=== PATIENT | male | born 1945 | race Caucasian/White ===

== ENCOUNTER 2016-08-25 14:45 | Emergency (ER) | payer MEDICARE ==
[2016-08-25] MEDS ORDERED: Lidocaine 1% (PF) 30 ML VIAL ONE (15:31)
[2016-08-25] MEDS ORDERED: Ventolin HFA Inhaler 60 PUFF INHALER ONE (15:31)
[2016-08-25] MEDS ORDERED: cefTRIAXone\\ROCEPHIN 1 GM VIAL ONE (15:31)
[2016-08-25] MEDS ORDERED: Lidocaine 1% 20 ML MDV ONE (15:32)
--- NOTE | 2016-08-25 15:38 | RAD ---
EXAM: CHEST TWO VIEWS 08/25/16 HISTORY: Cough. COMPARISON: None. FINDINGS: Atherosclerosis of the aorta. Normal cardiac silhouette. The pulmonary vessels and hilum are normal. Costophrenic angles are clear. Hyperinflation without consolidation or mass. No pneumothorax or oss eous abnormality. IMPRESSION: 1. Hyperinflation. No acute cardiopulmonary process. 2. Atherosclerosis. POS: [facility]
--- NOTE | 2016-08-25 16:10 | ERRECORD ---
[facility] EMERGENCY RECORD HPI COUGH (15:08 LHOD) CHIEF COMPLAINT: Patient presents for evaluation of cough. HISTORIAN: History provided by patient. TIME COURSE: BEFORE [place] SEEN HERE WITH TOE PAIN / GOUT. ALSO HAD COUGH FOR WHICH HE WAS TREATED WITH STEROID AND POSSIBLY KEFLEX, WITH SOME IMPROVEMENT. NOW FOR PAST WEEK AGO HAVING PROBLEMS WITH COUGH. NO CHEST PAIN. REPORTS LOW GRADE FEVER. ROS (15:15 LHOD) CONSTITUTIONAL: Historian reports fever, UNSURE BUT THINKS HAS HAD LOW GRADE FEVERS. ENT: Historian denies sore throat. CARDIOVASCULAR: Historian denies chest pain, denies edema. RESPIRATORY: Historian reports cough. GI: Historian denies abdominal pain, denies vomiting. MUSCULOSKELETAL: Negative musculoskeletal review of systems. SKIN: Historian denies rash. NEUROLOGIC: Historian denies headache. HEMO/LYMPHATIC: Historian denies easy bruising. ALLERGIC/IMMUNOLOGIC: Historian denies hives. NOTES: All systems reviewed, negative except as described above. PAST MEDICAL HISTORY MEDICAL HISTORY: Past medical history includes history of hypertension, which has been treated. CHRONIC BACK PAIN. ([facility] Aug 25, 2016 14:53 MDEB) MALE SURGICAL HISTORY: Patient has no surgical history. ([facility] Aug 25, 2016 14:53 MDEB) PSYCHIATRIC HISTORY: Notes: DENIES. ([facility] Aug 25, 2016 14:53 MDEB) SOCIAL HISTORY: Patient denies alcohol use, Patient denies drug use, Patient has no smoking history. ([facility] Aug 25, 2016 14:53 MDEB) Social History includes PT REPORTS HE DOES HAVE SMOKING HISTORY YEARS AGO, BUT NOT PRESENTLY, Patient is a former tobacco user, smoked cigarettes, Patient denies alcohol use, Patient denies drug use, Patient has no smoking history. (17:01 LHOD) NOTES: Nursing records reviewed. (15:03 LHOD) KNOWN ALLERGIES codeine sulfate (Unconfirmed): Reaction: Nausea No Known Drug Allergies Penicillins (Unconfirmed) CURRENT MEDICATIONS No recorded medications VITAL SIGNS (14:51 MDEB) VITAL SIGNS: BP: 149/74, Pulse: 87, Resp: 20, Temp: 97.8 &a-1R&a+25V*p+0X*m7419P*c202B*c15G*c2P*p-0X&a-25V&a+1R Name: Wong Lynn : 1945 M71 MedRec: [id number] AcctNum: [id number] Prepared: Sat Aug 25, 2016 17:07 by Interface Page 1 of 3 pMD [facility] EMERGENCY RECORD (Tympanic), Pain: 0, O2 sat: 93 on Room Air, Time: 08/25/2016 14:51. PHYSICAL EXAM (17:00 LHOD) CONSTITUTIONAL: Vital Signs Reviewed, Patient afebrile, Pulse normal, Blood pressure normal, Respiratory rate normal, Normal pulse oximetry, Patient appears non toxic, Patient alert and oriented to person, place and time. ENT: Pharynx exam normal. NECK: Neck exam included findings of normal range of motion, Trachea midline. RESPIRATORY CHEST: Respiratory exam included findings of, Breath sounds clear, ONE SOFT EXPIRATORY WHEEZE HEARD, THEN CLEARED. CARDIOVASCULAR: Cardiovascular exam included findings of heart rate regular rate and rhythm, Heart sounds normal. ABDOMEN MALE: Abdominal exam included findings of abdomen nontender. BACK: Back exam normal. UPPER EXTREMITY: Upper extremity exam normal. LOWER EXTREMITY: Left lower leg exam normal, Right lower leg exam normal. NEURO: Neuro exam findings include patient oriented to person, place and time, Speech normal. SKIN: no rash. RADIOLOGYINTERPRETATION (17:01 LHOD) CHEST: Films of the chest show, CHRONIC INTERSTITIAL LUNG DISEASE., CALCIFICATION OF AORTA. MEDICATION ADMINISTRATION SUMMARY Drug Name: Rocephin IM Convenience, Dose Ordered: 1 g, Route: Intramuscular, Status: Given, Time: 15:40 08/25/2016, Drug Name: *Proventil HFA, Dose Ordered: 2 puff(s), Route: Inhaler, Status: Given, Time: 15:39 08/25/2016, *Additional information available in notes, Detailed record available in Medication Service section. DOCTOR NOTES (17:02 LHOD) TEXT: PT REQUESTED IM ANTIBIOTIC. PROBLEM LIST No recorded problems DIAGNOSIS (15:27 LHOD) FINAL: PRIMARY: BRONCHITIS WITH REACTIVE AIRWAY DISEASE. PRESCRIPTION (15:27 LHOD) benzonatate: CAPSULE (HARD, SOFT, ETC.) : 200 mg : ORAL : &a-1R&a+25V*p+0X*v1403I*c202B*c15G*c2P*p-0X&a-25V&a+1R Name: Wong Lynn : 1945 M71 MedRec: [id number] AcctNum: [id number] Prepared: Christian Aug 25, 2016 17:07 by Interface Page 2 of 3 pMD [facility] EMERGENCY RECORD Quantity: 1 Unit: tab(s) Route: ORAL Schedule: every 8 hours PRN Dispense: 10 May substitute. Refills: No Refills . NOTES: 1 REFILL No Refills. Levaquin oral: TABLET : 750 mg : ORAL : Quantity: 750 Unit: mg Route: ORAL Schedule: once a day Dispense: 5 May substitute. Refills: No Refills . NOTES: No Refills. DISPOSITION PATIENT: Disposition Type: Discharge, Disposition: *Discharge Home, Condition: Good. (15:27 LHOD) Patient left the department. (15:53 MDEB) Kendrick: LHOD=MD Daniel, Burak MDEB=MYLES Gil, Freida &a-1R&a+25V*p+0X*[id number]*c202B*c15G*c2P*p-0X&a-25V&a+1R Name: Wong Lynn : 1945 M71 MedRec: [id number] AcctNum: [id number] Prepared: Christian Aug 25, 2016 17:07 by Interface Page 3 of 3 pMD [facility]
--- NOTE | 2016-08-25 16:16 | PICIS ---
[facility] EMERGENCY RECORD TRIAGE ([facility] Aug 25, 2016 14:53 MDEB) PATIENT: NAME: Wong Lynn, AGE: 71, GENDER: male, : Sat1945, TIME OF GREET: Sat Aug 25, 2016 14:45, PREFERRED LANGUAGE: Swedish, RACE: WHITE, ETHNICITY: Not or , ECODE BILLING MAP: [facility], SSN: [id number], Zip Code: [address], KG WEIGHT: 71.21, PHONE: , , , PERSON ID: [id number], PCP: NO PCP. ([facility] Aug 25, 2016 14:53 MDEB) TRIAGE NOTES: COUGH, CONGESTION X 7 DAYS. ([facility] Aug 25, 2016 14:53 MDEB) COMPLAINT: FLU LIKE SYMPTOMS. ([facility] Aug 25, 2016 14:53 MDEB) ADMISSION: URGENCY: 3 Urgent, ADMISSION SOURCE: Home, TRANSPORT: Walk-in, BED: TRIAGE. ([facility] Aug 25, 2016 14:53 MDEB) PAIN: Notes: DENIES AT THIS TIME. ([facility] Aug 25, 2016 14:53 MDEB) IMMUNIZATIONS: Tetanus immunization up to date. ([facility] Aug 25, 2016 14:53 MDEB) TRIAGE SCREENING: Patient denies suicidal ideation, Patient denies presence of domestic violence. ([facility] Aug 25, 2016 14:53 MDEB) PROVIDERS: TRIAGE NURSE: Freida Gil RN. ([facility] Aug 25, 2016 14:53 MDEB) VITAL SIGNS: BP 149/74, Pulse 87, Resp 20, Temp 97.8, (Tympanic), Pain 0, O2 Sat 93, on Room Air, Time 08/25/2016 14:51. (14:51 MDEB) PREVIOUS VISIT ALLERGIES: Penicillins. (Sat Aug 25, 2016 14:53 MDEB) KNOWN ALLERGIES codeine sulfate (Unconfirmed): Reaction: Nausea No Known Drug Allergies Penicillins (Unconfirmed) CURRENT MEDICATIONS No recorded medications VITAL SIGNS (14:51 MDEB) VITAL SIGNS: BP: 149/74, Pulse: 87, Resp: 20, Temp: 97.8 (Tympanic), Pain: 0, O2 sat: 93 on Room Air, Time: 08/25/2016 14:51. NURSING ASSESSMENT: RESPIRATORY /CHEST (14:53 MDEB) CONSTITUTIONAL: Patient arrives ambulatory, Gait steady, History obtained from patient, Patient appears comfortable, Patient cooperative, Patient alert, Oriented to person, place and time, Skin warm, Skin dry, Skin normal in color, Mucous membranes pink, Mucous membranes moist, Patient is well-groomed, Patient complains of COUGH, CONGESTION FOR ONE WEEK, NON-PRODUCTIVE COUGH. PAIN: Patient rates pain as 0 out of 10. RESPIRATORY/CHEST: Breath sounds clear, Respiratory assessment findings include respiratory effort easy, Respirations regular, Conversing normally, Neck and chest exam findings include trachea midline, Chest expansion equal, Chest movement symmetrical, &a-1R&a+25V*p+0X*v6844G*c202B*c15G*c2P*p-0X&a-25V&a+1R Name: Wong Lynn : 1945 M71 MedRec: [id number] AcctNum: [id number] Prepared: Christian Aug 25, 2016 17:14 by Interface Page 1 of 5 pMD [facility] EMERGENCY RECORD Associated with cough, dry, non-productive. ENT: Ear assessment findings include ear normal to inspection, Nasal assessment findings include nose, Congestion, bilaterally, Mouth and throat assessment findings include mouth inspection normal, Mucous membranes pink, and moist, Able to swallow, Speech normal. NOTES: Emotional support needed and given, Patient tolerated procedure well. SAFETY: Cart/Stretcher in lowest position, Family at bedside, Call light within reach, Hospital ID band on. NURSING PROCEDURE: DISCHARGE NOTE (15:50 MDEB) DISCHARGE: Patient discharged to home, ambulating without assistance, family driving, accompanied by //partner, Summary of Care printed/ provided, Patient requested and was provided an electronic copy of Discharge Instructions, Transition record given to patient, Discharge instructions given to patient, Discharge instructions given to spouse, Simple or moderate discharge teaching performed, MEDICATIONS, Prescriptions given and instructions on side effects given, Above person(s) verbalized understanding of discharge instructions and follow-up care, Patient treated and evaluated by physician. BELONGINGS: Belongings remain with patient, Valuables remain with patient. NOTES: Emotional support needed and given, Patient tolerated procedure well. ORDER DETAILS Order Name: XR Chest Pa & Lat STANDARD, Status: Active, Time: 15:03 08/25/2016, User: Alset Wellen, - Ordered for: MD Sanchez Lefayne, - Entered by: MD Sanchez Lefayne - Sat Aug 25, 2016 15:03, - Quantity: 1. MEDICATION ADMINISTRATION SUMMARY Drug Name: Rocephin IM Convenience, Dose Ordered: 1 g, Route: Intramuscular, Status: Given, Time: 15:40 08/25/2016, Drug Name: *Proventil HFA, Dose Ordered: 2 puff(s), Route: Inhaler, Status: Given, Time: 15:39 08/25/2016, *Additional information available in notes, Detailed record available in Medication Service section. MEDICATION SERVICE Proventil HFA: Order: Proventil HFA (albuterol sulfate) - Dose: 2 puff(s) : Inhaler Notes: TAKE HOME....1-2 PUFFS EVERY 2 HOURS NEEDED FOR ASTHMA Ordered by: Burak Sanchez MD &a-1R&a+25V*p+0X*u8571D*c202B*c15G*c2P*p-0X&a-25V&a+1R Name: Wong Lynn : 1945 M71 MedRec: [id number] AcctNum: [id number] Prepared: Sat Aug 25, 2016 17:14 by Interface Page 2 of 5 pMD [facility] EMERGENCY RECORD Entered by: Burak Sanchez MD Sat Aug 25, 2016 15:25 , Acknowledged by: Freida Gil RN Sat Aug 25, 2016 15:30 Documented as given by: Freida Gil RN Sat Aug 25, 2016 15:39 Patient, Medication, Dose, Route and Time verified prior to administration. Amount given: #[id number], Site: Medication administered via MDI, Correct patient, time, route, dose and medication confirmed prior to administration, Patient advised of actions and side-effects prior to administration, Allergies confirmed and medications reviewed prior to administration, Patient in position of comfort, Side rails up, Cart in lowest position, Family at bedside. Rocephin IM Convenience: Order: Rocephin IM Convenience (ceftriaxone sodium/lidocaine HCl) - Dose: 1 g : Intramuscular POTENTIAL ALLERGY REACTION: 'Penicillins' - Not a true drug allergy Ordered by: Burak Sanchez MD Entered by: Burak Sanchez MD [facility] Aug 25, 2016 15:26 , Acknowledged by: Freida Gil RN [facility] Aug 25, 2016 15:29 Documented as given by: Freida Gil RN [facility] Aug 25, 2016 15:40 Patient, Medication, Dose, Route and Time verified prior to administration. IM antibiotic, Amount given: 1 gram, Medication administered to left hip, Correct patient, time, route, dose and medication confirmed prior to administration, Patient advised of actions and side-effects prior to administration, Allergies confirmed and medications reviewed prior to administration, Patient in position of comfort, Side rails up, Cart in lowest position, Family at bedside. HPI COUGH (15:08 LHOD) CHIEF COMPLAINT: Patient presents for evaluation of cough. HISTORIAN: History provided by patient. TIME COURSE: BEFORE [facility] SEEN HERE WITH TOE PAIN / GOUT. ALSO HAD COUGH FOR WHICH HE WAS TREATED WITH STEROID AND POSSIBLY KEFLEX, WITH SOME IMPROVEMENT. NOW FOR PAST WEEK AGO HAVING PROBLEMS WITH COUGH. NO CHEST PAIN. REPORTS LOW GRADE FEVER. ROS (15:15 LHOD) CONSTITUTIONAL: Historian reports fever, UNSURE BUT THINKS HAS HAD LOW GRADE FEVERS. ENT: Historian denies sore throat. CARDIOVASCULAR: Historian denies chest pain, denies edema. RESPIRATORY: Historian reports cough. GI: Historian denies abdominal pain, denies vomiting. MUSCULOSKELETAL: Negative musculoskeletal review of systems. SKIN: Historian denies rash. NEUROLOGIC: Historian denies headache. HEMO/LYMPHATIC: Historian denies easy bruising. ALLERGIC/IMMUNOLOGIC: Historian denies hives. NOTES: All systems reviewed, negative except as described above. &a-1R&a+25V*p+0X*f4862J*c202B*c15G*c2P*p-0X&a-25V&a+1R Name: Wong Lynn : 1945 M71 MedRec: [id number] AcctNum: [id number] Prepared: [facility] Aug 25, 2016 17:14 by Interface Page 3 of 5 pMD [facility] EMERGENCY RECORD PAST MEDICAL HISTORY MEDICAL HISTORY: Past medical history includes history of hypertension, which has been treated. CHRONIC BACK PAIN. ([facility] Aug 25, 2016 14:53 MDEB) MALE SURGICAL HISTORY: Patient has no surgical history. ([facility] Aug 25, 2016 14:53 MDEB) PSYCHIATRIC HISTORY: Notes: DENIES. ([facility] Aug 25, 2016 14:53 MDEB) SOCIAL HISTORY: Patient denies alcohol use, Patient denies drug use, Patient has no smoking history. ([facility] Aug 25, 2016 14:53 MDEB) Social History includes PT REPORTS HE DOES HAVE SMOKING HISTORY YEARS AGO, BUT NOT PRESENTLY, Patient is a former tobacco user, smoked cigarettes, Patient denies alcohol use, Patient denies drug use, Patient has no smoking history. (17:01 LHOD) NOTES: Nursing records reviewed. (15:03 LHOD) PHYSICAL EXAM (17:00 LHOD) CONSTITUTIONAL: Vital Signs Reviewed, Patient afebrile, Pulse normal, Blood pressure normal, Respiratory rate normal, Normal pulse oximetry, Patient appears non toxic, Patient alert and oriented to person, place and time. ENT: Pharynx exam normal. NECK: Neck exam included findings of normal range of motion, Trachea midline. RESPIRATORY CHEST: Respiratory exam included findings of, Breath sounds clear, ONE SOFT EXPIRATORY WHEEZE HEARD, THEN CLEARED. CARDIOVASCULAR: Cardiovascular exam included findings of heart rate regular rate and rhythm, Heart sounds normal. ABDOMEN MALE: Abdominal exam included findings of abdomen nontender. BACK: Back exam normal. UPPER EXTREMITY: Upper extremity exam normal. LOWER EXTREMITY: Left lower leg exam normal, Right lower leg exam normal. NEURO: Neuro exam findings include patient oriented to person, place and time, Speech normal. SKIN: no rash. EVENTS TRANSFER: Triage to Emergency Triage. ([facility] Aug 25, 2016 14:53 MDEB) Emergency Triage to Main ED -04. (14:54 MDEB) Removed from Emergency Main ED -04. (15:53 MDEB) RADIOLOGYINTERPRETATION (17:01 LHOD) CHEST: Films of the chest show, CHRONIC INTERSTITIAL LUNG DISEASE., CALCIFICATION OF AORTA. &a-1R&a+25V*p+0X*k6657W*c202B*c15G*c2P*p-0X&a-25V&a+1R Name: Wong Lynn : 1945 M71 MedRec: [id number] AcctNum: [id number] Prepared: [facility] Aug 25, 2016 17:14 by Interface Page 4 of 5 pMD [facility] EMERGENCY RECORD DOCTOR NOTES (17:02 LHOD) TEXT: PT REQUESTED IM ANTIBIOTIC. PROBLEM LIST No recorded problems DIAGNOSIS (15:27 LHOD) FINAL: PRIMARY: BRONCHITIS WITH REACTIVE AIRWAY DISEASE. DISPOSITION PATIENT: Disposition Type: Discharge, Disposition: *Discharge Home, Condition: Good. (15:27 LHOD) Patient left the department. (15:53 MDEB) INSTRUCTION (15:27 LHOD) DISCHARGE: WHEEZING WITH BRONCHITIS ADULT. FOLLOWUP: Follow up with Primary Care Physician in 7-10 days. SPECIAL: *RETURN IF WORSE Follow-up with your PCP. PRESCRIPTION (15:27 LHOD) benzonatate: CAPSULE (HARD, SOFT, ETC.) : 200 mg : ORAL : Quantity: 1 Unit: tab(s) Route: ORAL Schedule: every 8 hours PRN Dispense: 10 May substitute. Refills: No Refills . NOTES: 1 REFILL No Refills. Levaquin oral: TABLET : 750 mg : ORAL : Quantity: 750 Unit: mg Route: ORAL Schedule: once a day Dispense: 5 May substitute. Refills: No Refills . NOTES: No Refills. IMAGING (15:51 MDEB) *DISCHARGE INSTRUCTIONS RECEIPT: Image captured from scanner. *SUPPLY CHARGE SHEET: Image captured from scanner. ADMIN (17:02 LHOD) DIGITAL SIGNATURE: MD Sanchez Lefayne. Kendrick: LHOD=MD Sanchez Lefayne MDEB=MYLES Gil, Freida &a-1R&a+25V*p+0X*h8563X*c202B*c15G*c2P*p-0X&a-25V&a+1R Name: Wong Lynn : 1945 M71 MedRec: [id number] AcctNum: [id number] Prepared: Christian Aug 25, 2016 17:14 by Interface Page 5 of 5 pMD MTDD
== END 2016-08-25 15:36 | disposition home or self-care (01) ==
LOC: MADERS 14:45
DX: J45.909 Unspecified asthma, uncomplicated (principal); I10 Essential (primary) hypertension; Z87.891 Personal history of nicotine dependence
CPT/HCPCS: 71020; 96372; J0696; J2001

== ENCOUNTER 2016-09-12 11:38 | Emergency (ER) | payer MEDICARE | END 2016-09-12 12:37 | disposition home or self-care (01) | LOC: MADERS 11:38 | DX: J06.9 Acute upper respiratory infection, unspecified (principal); H66.92 Otitis media, unspecified, left ear; I10 Essential (primary) hypertension | CPT/HCPCS: 99283 ==

== ENCOUNTER 2019-04-06 12:02 | Emergency (ER) | payer MEDICARE, OTHER ==
--- NOTE | 2019-04-06 13:02 | RAD ---
EXAM: 4 views of the right knee HISTORY: Knee pain COMPARISON: None FINDINGS: No knee effusion is seen. There is no evidence of acute fracture or dislocation. No signifi cant degenerative changes are seen. No soft tissue swelling is present. IMPRESSION: No evidence of acute osseous abnormality.
[2019-04-06] MEDS ORDERED: Dexamethasone 4 mg/ml Vial ONE (13:17)
[2019-04-06] MEDS ORDERED: Colchicine 0.6 MG TAB ONE (13:17)
[2019-04-06] MEDS ORDERED: traMADol HCl 50 MG TAB ONE (13:17)
== END 2019-04-06 13:30 | disposition home or self-care (01) ==
LOC: MADERS 12:02
DX: M10.9 Gout, unspecified (principal); I10 Essential (primary) hypertension; Z87.891 Personal history of nicotine dependence; Z79.899 Other long term (current) drug therapy
CPT/HCPCS: J1100

== ENCOUNTER 2021-06-04 17:34 | Emergency (ER) | payer OTHER, MEDICARE ==
[2021-06-04] MEDS ORDERED: Lisinopril 10 MG TAB ONE (18:44)
[2021-06-04] MEDS ORDERED: Amlodipine 5 MG TAB ONE (18:44)
== END 2021-06-04 19:37 | disposition home or self-care (01) ==
LOC: MADERS 17:34
DX: R07.89 Other chest pain (principal); F17.200 Nicotine dependence, unspecified, uncomplicated; I10 Essential (primary) hypertension
CPT/HCPCS: 99283

== ENCOUNTER 2022-03-02 15:17 | Emergency (ER) | payer OTHER, MEDICARE ==
[2022-03-02] MEDS ORDERED: Ibuprofen 400 MG TAB ONE (16:12)
== END 2022-03-02 16:15 | disposition home or self-care (01) ==
LOC: MADERS 15:17
DX: M10.9 Gout, unspecified (principal); I10 Essential (primary) hypertension; Z87.891 Personal history of nicotine dependence; Z79.899 Other long term (current) drug therapy
CPT/HCPCS: 99283

== ENCOUNTER 2024-06-29 20:46 | Emergency (ER) | payer MEDICARE, OTHER ==
[2024-06-29] MEDS ORDERED: Lidocaine Viscous Sol 2% 15 ml UD Cup ONE (21:44)
[2024-06-29] MEDS ORDERED: Mag-Al 1200 mg/1200 mg/30 ML UDCUP ONE (21:45)
[2024-06-29 23:09] LABS: Hematocrit 54.1 % (42.0-52.0); Hemoglobin 16.8 g/dL (14.0-18.0); Mean Corpuscular HGB CONC 31.1 g/dL (32.0-36.0); Mean Corpuscular Hemoglobin 27.8 pg (27.0-31.0); Mean Corpuscular Volume 89.3 fl (78.0-98.0); Mean Platelet Volume 8.5 fL (7.4-10.4); Platelet Count 502 10x3/uL (130-400); RBC Distribution Width 13.7 % (11.5-14.5); Red Blood Cell (RBC) Count 6.06 mill/uL (4.70-6.10); White Blood Cell (WBC) Count 12.9 10x3/uL (4.8-10.8)
[2024-06-29 23:23] LABS: Band 2 % (5-11); Eosinophils 5 % (0-10); Lymphocytes 27 % (21-51); MDiff Complete? YES; Monocytes 10 % (0-10); Neutrophil 56 % (42-75); Platelet Adequacy Comment Appears Increased
[2024-06-29 23:27] LABS: Troponin I 0.015 ng/mL (< 0.028)
[2024-06-29 23:29] LABS: Anion Gap 16 mmol/L (10-20); BUN (Urea Nitrogen) 13 mg/dL (8.4-25.7); Calc. Creatinine Clearance 0 mL/min (70-130); Calcium 10.5 mg/dL (7.8-10.44); Carbon Dioxide 26 mmol/L (23-31); Chloride 103 mmol/L (98-107); Estimated GFR 59; Glucose 98 mg/dL (83-110); Potassium 4.5 mmol/L (3.5-5.1); Sodium 140 mmol/L (136-145)
[2024-06-30] MEDS ORDERED: Nitroglycerin 0.4 MG TAB 1 EACH ONE (00:13)
== END 2024-06-30 00:58 | disposition home or self-care (01) ==
LOC: MADERS 20:46
DX: R13.10 Dysphagia, unspecified (principal); I10 Essential (primary) hypertension; Z87.891 Personal history of nicotine dependence
CPT/HCPCS: 71045; 80048; 84484; 85025; 93005